=== PATIENT | female | born 1935 | race Caucasian/White ===

== ENCOUNTER 2023-05-27 09:28 | Outpatient (REF) | payer MEDICARE, SELFPAY ==
[2023-05-27 11:35] LABS: Folate 10.4 ng/mL (> or = 4.0); Vitamin B12 400 pg/mL (200-900)
== END 2023-05-27 09:29 | disposition home or self-care (01) ==
LOC: HO.LAB 09:28
PROVIDERS: Psychiatry & Neurology Neurology; PCP Family Medicine; Visit Provider Internal Medicine
DX: G30.9 Alzheimer's disease, unspecified (principal)
CPT/HCPCS: 36415; 82607; 82746